=== PATIENT | female | born 1940 | race Caucasian/White ===

== ENCOUNTER 2016-04-21 11:59 | Emergency (ER) | payer MEDICARE ==
[2016-04-21 12:35] LABS: BASOPHIL 0.1 % (0-2); EOSINOPHIL 0.4 % (0-7); HCT 39.5 % (37.0-47.0); HGB 13.2 g/dl (12.5-16.0); LYMPHOCYTE 14.2 % (15-48); MCH 33.7 pg (25.0-31.0); MCHC 33.4 g/dL (32.0-36.0); MCV 100.8 fL (78.0-100.0); MONOCYTE 7.9 % (0-12); MPV 10.3 fL (6.0-9.5); NEUTROPHIL 77.4 % (41-80); PLT 183 K/uL (150-400); RBC 3.92 M/uL (4.20-5.40); RDW 13.3 % (11.5-14.0); WBC 8.5 K/uL (4.0-10.5)
[2016-04-21 12:48] LABS: ALBUMIN 3.7 g/dL (3.4-4.8); BILIRUBIN - TOTAL 0.4 mg/dL (0.1-1.0); CREATININE 1.2 mg/dL (0.5-1.0); GLOBULIN (CALCULATION) 3.1 g/dL (2.2-4.2); POTASSIUM 4.5 mmol/L (3.5-5.1); TOTAL PROTEIN 6.8 g/dL (6.4-8.3)
== END 2016-04-21 14:55 | disposition other institution (70) ==
LOC: FER 11:59
PROVIDERS: Nurse Practitioner
DX: S72.141A Displaced intertrochanteric fracture of right femur, initial encounter for closed fracture (principal); I51.9 Heart disease, unspecified; Z88.2 Allergy status to sulfonamides; Z95.0 Presence of cardiac pacemaker; W07.XXXA Fall from chair, initial encounter
CPT/HCPCS: 36415; 71010; 72170; 73502; 80053; 85025; 93005; J1170; J2270; J2405

== ENCOUNTER 2016-04-27 16:47 | Inpatient (IN) | payer MEDICARE ==
[2016-04-27 19:17] LABS: BASOPHIL 0.1 % (0-2); EOSINOPHIL 0 % (0-7); HGB 9.1 g/dl (12.5-16.0); LYMPHOCYTE 4.3 % (15-48); MONOCYTE 5.3 % (0-12); MPV 9.5 fL (6.0-9.5); NEUTROPHIL 90.3 % (41-80); PLT 195 K/uL (150-400); RBC 2.68 M/uL (4.20-5.40); RDW 12.6 % (11.5-14.0)
[2016-04-27 19:24] LABS: WBC 18.7 K/uL (4.0-10.5)
[2016-04-27 19:32] LABS: LACTIC ACID 1.1 mmol/L (0.5-2.2)
[2016-04-27 19:36] LABS: ALBUMIN 2.7 g/dL (3.4-4.8); BILIRUBIN - TOTAL 1.2 mg/dL (0.1-1.0); CREATININE 0.6 mg/dL (0.5-1.0); GLOBULIN (CALCULATION) 2.8 g/dL (2.2-4.2); POTASSIUM 4.7 mmol/L (3.5-5.1); TOTAL PROTEIN 5.5 g/dL (6.4-8.3)
[2016-04-27 19:58] LABS: INR 1.02 (0.9-1.2); PTT 31.5 SECONDS (23.2-31.4)
[2016-04-28 01:35] LABS: BILIRUBIN NEGATIVE (NEGATIVE); BLOOD 1+ Ery/uL (NEGATIVE); CLARITY CLEAR (CLEAR); COLOR YELLOW (YELLOW); GLUCOSE (U) NORMAL (NORMAL); KETONE (U) NEGATIVE (NEGATIVE); LEUKOCYTES NEGATIVE Leu/uL (NEGATIVE); NITRITE NEGATIVE (NEGATIVE); PROTEIN NEGATIVE (NEGATIVE); SPECIFIC GRAVITY 1.015 (1.001-1.030); UROBILINOGEN 0.2 mg/dL (0.2-1.0); pH 5.5 (5.0-9.0)
[2016-04-28 03:35] LABS: CREATININE 0.6 mg/dL (0.5-1.0); POTASSIUM 4.3 mmol/L (3.5-5.1)
[2016-04-28 09:32] LABS: HCT 23.4 % (37.0-47.0); HGB 8.1 g/dl (12.5-16.0); MCH 33.8 pg (25.0-31.0); MCHC 34.6 g/dL (32.0-36.0); MCV 97.5 fL (78.0-100.0); MPV 9.2 fL (6.0-9.5); RBC 2.4 M/uL (4.20-5.40); RDW 12.9 % (11.5-14.0); WBC 16.3 K/uL (4.0-10.5)
[2016-04-28 09:55] LABS: CREATININE 0.6 mg/dL (0.5-1.0); POTASSIUM 4.4 mmol/L (3.5-5.1)
[2016-04-28 15:50] LABS: CREATININE 0.6 mg/dL (0.5-1.0); POTASSIUM 4.4 mmol/L (3.5-5.1)
--- NOTE | 2016-04-28 16:05 | NUR ---
PATIENT WANTS TO GO BACK TO BED. PATIENT TRANSFERRED TO BED X2 ASSIST WITH GAIT BELT. PATIENT KNEES BUCKLED AND STAFF X2 ASSISTED PATIENT VERY QUICKLY TO SIDE OF BED. PATIENT ABLE TO SCOOT BOTTOM BACK IN AND AND ASSISTED TO LYING POSITION. REPOSITIONED IN BED. PATIENT EXTREMELY PALE. BP 86/43. O2 SAT 71%. RAPID RESPONSE CALLED. SEE RAPID RESPONSE SHEET.
--- NOTE | 2016-04-28 16:51 | NUR ---
PATIENT RECEIVED DUONEB BREATHING TREATMENT. COLOR A LITTLE BETTER. PATIENT STATES SHE FEELS SOME BETTER. DR. HARRIS IN TO SPEAK WITH PATIENT AND FAMILY. DR. HARRIS WISHES TO TRANSFER PATIENT TO . IF DOES NOT HAVE ANY BED, WILL ATTEMPT TRANSFER TO [facility]. FAMILY AGREES TO PLAN OF CARE.
== END 2016-04-29 00:08 | disposition other institution (70) | DRG 871 ==
LOC: FER 16:47 → FTCU 20:45
PROVIDERS: Emergency Medicine; Internal Medicine; ADMIT Internal Medicine
DX: A41.9 Sepsis, unspecified organism (principal); J18.9 Pneumonia, unspecified organism; J96.21 Acute and chronic respiratory failure with hypoxia; G93.41 Metabolic encephalopathy; I42.9 Cardiomyopathy, unspecified; E83.42 Hypomagnesemia; I50.9 Heart failure, unspecified; E87.1 Hypo-osmolality and hyponatremia; Y95 Nosocomial condition; Z95.810 Presence of automatic (implantable) cardiac defibrillator; Z66 Do not resuscitate; Z79.82 Long term (current) use of aspirin; E03.9 Hypothyroidism, unspecified; Z88.2 Allergy status to sulfonamides; Z88.8 Allergy status to other drugs, medicaments and biological substances; Z82.3 Family history of stroke; J47.9 Bronchiectasis, uncomplicated
CPT/HCPCS: 36415; 36600; 71010; 71275; 73501; 80048; 80053; 81003; 82533; 82803; 83605; 83880; 83930; 83935; 84300; 84443; 84484; 85025; 85610; 85730; 87040; 87324; 87449; 93005; 94640; 97163; 97167; 97530; 97530-GP; J0456; J1940; J2405; J2543; J3370; Q9967